=== PATIENT | male | born 1955 ===

== ENCOUNTER 2024-04-27 08:13 | Outpatient (CLI) | payer MEDICARE, OTHER, SELFPAY ==
--- NOTE | 2024-04-27 08:19 | CTR_ITS ---
PROCEDURE INFORMATION: Exam: CT Neck With Contrast Exam date and time: 04/27/2024 8:52 AM Age: 68 years old Clinical indication: Condition or disease; Other: Tonsil and adneoid disease; Patient HX: Chronic disease of tonsils and adenoids; Additional info: Chronic diseases of tonsils and adenoids TECHNIQUE: Imaging protocol: Computed tomography of the neck with contrast. Radiation optimization: All CT scans at this facility use at least one of these dose optimization techniques: automated exposure control; mA and/or kV adjustment per patient size (includes targeted exams where dose is matched to clinical indication); or iterative reconstruction. Contrast material: OMNI 350; Contrast volume: 100 ml; Contrast route: INTRAVENOUS (IV); COMPARISON: MR erika's wo/w con* [id number] 08/01/2018 12:48 PM RADIATION DOSE METRICS: Total DLP (mGy-cm): 169.36 FINDINGS: Mild carotid atherosclerosis without stenosis. Both vertebral arteries are patent. There is chronic multilevel cervical spondylosis resulting in chronic spinal stenosis and chronic cord compression. A few borderline prominent cervical lymph nodes are seen but no conclusive pathologic cervical lymphadenopathy is identified. The parotid glands are symmetric in size. The submandibular glands are symmetric. The thyroid gland is not enlarged. Parapharyngeal fat planes are preserved. No suspicious mass identified in the oral cavity or pharynx; direct inspection could provide more sensitive detection of subtle mucosal pathology. Bilateral mastoid sinuses and middle ear cavities are well-aerated. Imaged portions of the paranasal sinuses are well-aerated. CT/CT neck w con* [id number] IMPRESSION: No acute abnormality identified. Incidental and/or nonacute findings as reported above.
[2024-04-27] MEDS: iohexol 350 mg/mL 500 mL Btl (per mL) IV (09:07)
== END 2024-04-27 08:14 | disposition home or self-care (01) ==
LOC: RAD 08:15
PROVIDERS: PCP Family Medicine; Visit Provider Specialist
DX: J35.8 Other chronic diseases of tonsils and adenoids (principal); M47.812 Spondylosis without myelopathy or radiculopathy, cervical region
CPT/HCPCS: 70491